=== PATIENT | female | born 1960 | race Caucasian/White ===

== ENCOUNTER 2016-11-24 10:59 | Emergency (ER) | payer OTHER ==
[~2016-11-24] VITALS: Ht 149.9 cm; Wt 53.2 kg
[~2016-11-24 10:59] MED LIST: BACLOFEN10 MG PO; FLUCONAZOLE100 MG PO; FLUOXETINE HCL20 MG PO; LAC PO; LEVAQUIN750 MG PO; LORAZEPAM1 MG PO; NAPROXEN500 MG PO; OMEPRAZOLE40 M1 PO; PROVENTIL0.09 MG/A1 INH; SINGULAIR10 MG PO; SULFASALAZINE500 MG PO; VENLAFAXINE HYD75 M1 PO
[2016-11-24 14:18] VITALS: BP 118/77
== END 2016-11-24 14:19 | disposition home or self-care (01) ==
LOC: ED 10:59
DX: G43.909 Migraine, unspecified, not intractable, without status migrainosus (principal); H53.149 Visual discomfort, unspecified; R11.2 Nausea with vomiting, unspecified; M06.9 Rheumatoid arthritis, unspecified; L40.50 Arthropathic psoriasis, unspecified; M19.90 Unspecified osteoarthritis, unspecified site; F17.200 Nicotine dependence, unspecified, uncomplicated; G89.4 Chronic pain syndrome; M54.2 Cervicalgia; M54.6 Pain in thoracic spine; M54.5 Low back pain; Z88.8 Allergy status to other drugs, medicaments and biological substances
CPT/HCPCS: J1885; Q0162

== ENCOUNTER 2017-09-15 14:33 | Emergency (ER) | payer OTHER ==
[~2017-09-15] VITALS: Ht 149.9 cm; Wt 51.0 kg
[2017-09-15 14:37] VITALS: Ht 149.9 cm; Wt 51.0 kg
[2017-09-15 15:05] VITALS: BP 119/88
== END 2017-09-15 15:05 | disposition home or self-care (01) ==
LOC: ED 14:33
DX: G89.29 Other chronic pain (principal); M13.88 Other specified arthritis, other site; F19.239 Other psychoactive substance dependence with withdrawal, unspecified; M06.9 Rheumatoid arthritis, unspecified; J45.909 Unspecified asthma, uncomplicated; Z88.1 Allergy status to other antibiotic agents; Z88.8 Allergy status to other drugs, medicaments and biological substances

== ENCOUNTER 2018-05-24 10:19 | Emergency (ER) | payer OTHER ==
[2018-05-24 10:33] VITALS: Ht 149.9 cm
[2018-05-24 12:19] VITALS: BP 129/75
== END 2018-05-24 12:19 | disposition home or self-care (01) ==
LOC: ED 10:19
DX: S30.860A Insect bite (nonvenomous) of lower back and pelvis, initial encounter (principal); S80.869A Insect bite (nonvenomous), unspecified lower leg, initial encounter; J45.909 Unspecified asthma, uncomplicated; Z88.8 Allergy status to other drugs, medicaments and biological substances; W57.XXXA Bitten or stung by nonvenomous insect and other nonvenomous arthropods, initial encounter; Y93.89 Activity, other specified; Y92.89 Other specified places as the place of occurrence of the external cause; Y99.8 Other external cause status

== ENCOUNTER 2018-05-28 01:59 | Inpatient (IN) | payer OTHER ==
[~2018-05-28] VITALS: Ht 149.9 cm; Wt 50.0 kg
[2018-05-28 07:01] LABS: CALCIUM 8.6 mg/dL (8.5-10.1); CARBON DIOXIDE 25.6 mmol/L (21-32); CHLORIDE SERUM 104 mmol/L (98-107); CREATININE SERUM 0.8 mg/dL (0.6-1.0); GFR1 > 60 mL/min; GLUCOSE SERUM 112 mg/dL (74-106); POTASSIUM SERUM 3.4 mmol/L (3.5-5.1); SODIUM SERUM 140 mmol/L (136-145)
[2018-05-28 07:21] LABS: ALBUMIN 3.9 g/dL (3.4-5.0); ALKALINE PHOSPHATASE 55 U/L (46-116); ALT/SGPT 64 U/L (14-59); AST/SGOT 81 U/L (15-37); BILIRUBIN TOTAL 0.4 mg/dL (0.20-1.00); TOTAL PROTEIN, SERUM 7.5 g/dL (6.4-8.2)
[2018-05-28 07:38] LABS: BASOPHIL % 0.6 % (0-2); PLATELET COUNT 330 x10^3mcL (130-400); RED CELL DISTRIBUTION WIDTH 13.5 % (11.5-14.5)
[2018-05-28 08:37] LABS: AMPHETAMINE QUAL UR NONE DETECTED (See below)
[2018-05-28] MEDS ORDERED: FLE10 PO (09:12)
[2018-05-28] MEDS ORDERED: EFFEXOR-XR75 MG PO (09:13)
[2018-05-28 10:57] VITALS: BP 146/57
[2018-05-28 11:33] LABS: FREE T4 0.96 ng/dL (0.76-1.46); FREE THYROXINE INDEX 2.3 ug/dL (1.4-4.5); MAGNESIUM 2.1 mg/dL (1.8-2.4); PHOSPHOROUS 4.1 mg/dL (2.5-4.9)
[2018-05-28 11:35] LABS: CHOLESTEROL/HDL RATIO 2.2
[2018-05-28 11:53] LABS: UA SPECIFIC GRAVITY 1.015 (1.005-1.035); microscopic required? YES; urine erythrocyte 1+ (NEGATIVE)
[2018-05-28 17:18] VITALS: BP 135/70
[2018-05-28 17:23] VITALS: BP 146/57
[2018-05-28 20:42] VITALS: BP 129/68
[2018-05-29 01:03] LABS: T3 TOTAL 0.68 ng/mL
[2018-05-29 05:56] VITALS: BP 149/86
[2018-05-29 07:19] LABS: BASOPHIL % 0.8 % (0-2); CALCIUM 7.9 mg/dL (8.5-10.1); CARBON DIOXIDE 23.2 mmol/L (21-32); CHLORIDE SERUM 111 mmol/L (98-107); CREATININE SERUM 0.8 mg/dL (0.6-1.0); GFR1 > 60 mL/min; GLUCOSE SERUM 76 mg/dL (74-106); PLATELET COUNT 307 x10^3mcL (130-400); POTASSIUM SERUM 3.8 mmol/L (3.5-5.1); RED CELL DISTRIBUTION WIDTH 13.7 % (11.5-14.5); SODIUM SERUM 145 mmol/L (136-145)
[2018-05-29 08:35] VITALS: BP 139/79
[2018-05-29 17:05] VITALS: BP 139/81
[2018-05-29 21:11] VITALS: BP 124/68
[2018-05-30 06:04] VITALS: BP 143/78
[2018-05-30 07:08] LABS: CALCIUM 8.8 mg/dL (8.5-10.1); CARBON DIOXIDE 30.6 mmol/L (21-32); CHLORIDE SERUM 103 mmol/L (98-107); CREATININE SERUM 0.8 mg/dL (0.6-1.0); GFR1 > 60 mL/min; GLUCOSE SERUM 95 mg/dL (74-106); LIPASE 195 IU/L (73-393); POTASSIUM SERUM 3.6 mmol/L (3.5-5.1); SODIUM SERUM 141 mmol/L (136-145)
[2018-05-30 07:39] LABS: BASOPHIL % 0.6 % (0-2); PLATELET COUNT 397 x10^3mcL (130-400); RED CELL DISTRIBUTION WIDTH 13.7 % (11.5-14.5)
[2018-05-30 08:54] VITALS: BP 143/80
[2018-05-30 17:28] VITALS: BP 147/76
[2018-05-30 20:50] VITALS: BP 132/80
[2018-05-31 05:51] VITALS: BP 143/79
[2018-05-31 06:52] LABS: BASOPHIL % 0.6 % (0-2); PLATELET COUNT 343 x10^3mcL (130-400); RED CELL DISTRIBUTION WIDTH 13.3 % (11.5-14.5)
[2018-05-31 07:13] LABS: CALCIUM 8.5 mg/dL (8.5-10.1); CARBON DIOXIDE 25.8 mmol/L (21-32); CHLORIDE SERUM 105 mmol/L (98-107); CREATININE SERUM 0.6 mg/dL (0.6-1.0); GFR1 > 60 mL/min; GLUCOSE SERUM 96 mg/dL (74-106); POTASSIUM SERUM 3.7 mmol/L (3.5-5.1); SODIUM SERUM 139 mmol/L (136-145)
[2018-05-31 09:13] VITALS: BP 132/66
[2018-05-31] MEDS ORDERED: HYDROXYZINE HYD25 MG PO (11:09)
[2018-05-31] MEDS ORDERED: PREDNISONE50 MG PO (11:10)
[2018-05-31] MEDS ORDERED: TRAMADOL HCL50 MG PO (11:12)
[2018-05-31 18:07] VITALS: BP 123/89
[2018-05-31 20:36] VITALS: BP 143/82
[2018-06-01 05:19] VITALS: BP 124/64
[2018-06-01 08:26] VITALS: BP 134/61
[2018-06-01 10:37] VITALS: BP 134/61
== END 2018-06-01 10:59 | disposition home or self-care (01) | DRG 917 ==
LOC: ED 01:59 → MU 08:39
PROVIDERS: Emergency Medicine; Internal Medicine
DX: T40.7X4A Poisoning by cannabis (derivatives), undetermined, initial encounter (principal); G92 Toxic encephalopathy; N17.0 Acute kidney failure with tubular necrosis; N39.0 Urinary tract infection, site not specified; M62.82 Rhabdomyolysis; J44.9 Chronic obstructive pulmonary disease, unspecified; J45.909 Unspecified asthma, uncomplicated; M54.9 Dorsalgia, unspecified; G89.29 Other chronic pain; F32.9 Major depressive disorder, single episode, unspecified; Z72.0 Tobacco use
CPT/HCPCS: 83880; 84439; 94150; 97116-GP; G0480; J0696; J7030; Q0092

== ENCOUNTER 2018-07-29 10:14 | Emergency (ER) | payer MEDICARE, OTHER ==
[~2018-07-29] VITALS: Ht 149.9 cm; Wt 49.4 kg
[~2018-07-29 10:14] MED LIST changes: +EFFEXOR-XR75 MG PO; +FLE10 PO; +HYDROXYZINE HYD25 MG PO; +PREDNISONE50 MG PO; +TRAMADOL HCL50 MG PO
[2018-07-29 10:24] VITALS: BP 124/89; Ht 149.9 cm; Wt 49.4 kg
== END 2018-07-29 12:24 | disposition home or self-care (01) ==
LOC: ED 10:14
DX: M79.10 Myalgia, unspecified site (principal); F17.210 Nicotine dependence, cigarettes, uncomplicated; J45.909 Unspecified asthma, uncomplicated; Z59.0 Homelessness; Z88.6 Allergy status to analgesic agent; Z88.5 Allergy status to narcotic agent; Z88.8 Allergy status to other drugs, medicaments and biological substances
CPT/HCPCS: J1885

== ENCOUNTER 2018-08-06 17:29 | Emergency (ER) | payer MEDICARE, OTHER ==
[~2018-08-06] VITALS: Ht 149.9 cm; Wt 48.1 kg
[~2018-08-06 17:29] MED LIST changes: -TRAMADOL HCL50 MG PO
[2018-08-06 17:38] VITALS: Ht 149.9 cm; Wt 48.1 kg
[2018-08-06 19:53] VITALS: BP 146/92
== END 2018-08-06 19:53 | disposition home or self-care (01) ==
LOC: ED 17:29
DX: M45.9 Ankylosing spondylitis of unspecified sites in spine (principal); G89.29 Other chronic pain; R19.7 Diarrhea, unspecified; J45.909 Unspecified asthma, uncomplicated; M19.90 Unspecified osteoarthritis, unspecified site; Z59.0 Homelessness; Z88.6 Allergy status to analgesic agent; Z88.8 Allergy status to other drugs, medicaments and biological substances
CPT/HCPCS: J1885

== ENCOUNTER 2018-08-08 21:52 | Inpatient (IN) | payer MEDICARE, OTHER ==
[~2018-08-08] VITALS: Ht 149.9 cm; Wt 49.1 kg
[2018-08-08 21:59] VITALS: Ht 149.9 cm; Wt 49.1 kg
[2018-08-08 22:57] LABS: BASOPHIL % 0.7 % (0-2); PLATELET COUNT 358 x10^3mcL (130-400); RED CELL DISTRIBUTION WIDTH 14.2 % (11.5-14.5)
[2018-08-08 23:15] LABS: CALCIUM 8.6 mg/dL (8.5-10.1); CARBON DIOXIDE 24.2 mmol/L (21-32); CREATININE SERUM 1.4 mg/dL (0.6-1.0); POTASSIUM SERUM 3.8 mmol/L (3.5-5.1)
[2018-08-08 23:17] LABS: ALBUMIN 3.4 g/dL (3.4-5.0); BILIRUBIN TOTAL 0.19 mg/dL (0.20-1.00)
[2018-08-08 23:21] LABS: TOTAL PROTEIN, SERUM 6.1 g/dL (6.4-8.2)
[2018-08-09 00:12] LABS: microscopic required? YES; urine erythrocyte TRACE (NEGATIVE)
[2018-08-09] MEDS ORDERED: IBUPROFEN200 M2 PO (01:15)
[2018-08-09 02:09] VITALS: BP 95/52
[2018-08-09 05:37] VITALS: BP 97/51
[2018-08-09 07:09] LABS: BASOPHIL % 0.4 % (0-2); PLATELET COUNT 338 x10^3mcL (130-400)
[2018-08-09 07:15] LABS: ALKALINE PHOSPHATASE 43 U/L (46-116); ALT/SGPT 26 U/L (14-59); AST/SGOT 26 U/L (15-37); BILIRUBIN TOTAL 0.2 mg/dL (0.20-1.00); CALCIUM 7.7 mg/dL (8.5-10.1); CARBON DIOXIDE 21.4 mmol/L (21-32); CHLORIDE SERUM 110 mmol/L (98-107); CREATININE SERUM 0.9 mg/dL (0.6-1.0); GFR1 > 60 mL/min; GLUCOSE SERUM 90 mg/dL (74-106); POTASSIUM SERUM 3.8 mmol/L (3.5-5.1); SODIUM SERUM 140 mmol/L (136-145)
[2018-08-09 07:29] LABS: ALBUMIN 2.4 g/dL (3.4-5.0); TOTAL PROTEIN, SERUM 5.3 g/dL (6.4-8.2)
[2018-08-09 08:56] VITALS: BP 100/51
[2018-08-09] MEDS ORDERED: TRAMADOL HCL50 MG PO (10:52)
[2018-08-09 10:53] VITALS: BP 100/51
== END 2018-08-09 11:33 | disposition home or self-care (01) | DRG 690 ==
LOC: ED 21:52 → DU 08-09 00:19
PROVIDERS: Emergency Medicine; Internal Medicine
DX: N39.0 Urinary tract infection, site not specified (principal); E86.0 Dehydration; M06.9 Rheumatoid arthritis, unspecified; M45.9 Ankylosing spondylitis of unspecified sites in spine; Z68.21 Body mass index [BMI] 21.0-21.9, adult; F17.210 Nicotine dependence, cigarettes, uncomplicated; Z79.1 Long term (current) use of non-steroidal anti-inflammatories (NSAID)
CPT/HCPCS: 90658; J0696; J1650; J7030; Q0092

== ENCOUNTER 2018-09-03 00:44 | Emergency (ER) | payer MEDICARE ==
[~2018-09-03] VITALS: Ht 149.9 cm; Wt 48.1 kg
[~2018-09-03 00:44] MED LIST changes: +IBUPROFEN200 M2 PO; +TRAMADOL HCL50 MG PO
[2018-09-03 00:53] VITALS: Ht 149.9 cm; Wt 48.1 kg
[2018-09-03 02:49] VITALS: BP 107/62
== END 2018-09-03 02:49 | disposition home or self-care (01) ==
LOC: ED 00:44
DX: N39.0 Urinary tract infection, site not specified (principal); N12 Tubulo-interstitial nephritis, not specified as acute or chronic; F32.9 Major depressive disorder, single episode, unspecified; F41.9 Anxiety disorder, unspecified; M45.9 Ankylosing spondylitis of unspecified sites in spine; M06.9 Rheumatoid arthritis, unspecified
CPT/HCPCS: J1885

== ENCOUNTER 2018-09-18 20:55 | Emergency (ER) | payer BC ==
[~2018-09-18] VITALS: Ht 149.9 cm; Wt 47.6 kg
[2018-09-18 21:10] VITALS: Ht 149.9 cm; Wt 47.6 kg
[2018-09-18 21:41] LABS: BASOPHIL % 0.7 % (0-2); PLATELET COUNT 350 x10^3mcL (130-400); RED CELL DISTRIBUTION WIDTH 13.9 % (11.5-14.5)
[2018-09-18 21:55] LABS: CALCIUM 8.9 mg/dL (8.5-10.1); CARBON DIOXIDE 26.2 mmol/L (21-32); CHLORIDE SERUM 103 mmol/L (98-107); CREATININE SERUM 0.9 mg/dL (0.6-1.0); GFR1 > 60 mL/min; GLUCOSE SERUM 86 mg/dL (74-106); POTASSIUM SERUM 3.7 mmol/L (3.5-5.1); SODIUM SERUM 140 mmol/L (136-145)
[2018-09-18 22:00] LABS: ALBUMIN 3.8 g/dL (3.4-5.0); ALKALINE PHOSPHATASE 57 U/L (46-116); ALT/SGPT 28 U/L (14-59); AST/SGOT 26 U/L (15-37); BILIRUBIN TOTAL 0.36 mg/dL (0.20-1.00); TOTAL PROTEIN, SERUM 7.4 g/dL (6.4-8.2)
[2018-09-19 00:07] LABS: AMPHETAMINE QUAL UR NONE DETECTED (See below)
[2018-09-19 14:00] VITALS: BP 120/68
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
== END 2018-09-19 14:00 | disposition home or self-care (01) ==
LOC: ED 20:55
PROVIDERS: Emergency Medicine
DX: R53.1 Weakness (principal); G89.29 Other chronic pain; M54.5 Low back pain; J45.909 Unspecified asthma, uncomplicated; M45.9 Ankylosing spondylitis of unspecified sites in spine; M06.9 Rheumatoid arthritis, unspecified; M19.90 Unspecified osteoarthritis, unspecified site; Z88.8 Allergy status to other drugs, medicaments and biological substances; Z88.6 Allergy status to analgesic agent; Z59.0 Homelessness
CPT/HCPCS: G0480; J1885; J7030

== ENCOUNTER 2018-09-30 10:54 | Emergency (ER) | payer BC ==
[~2018-09-30] VITALS: Ht 149.9 cm; Wt 46.7 kg
[2018-09-30 11:03] VITALS: BP 143/90; Ht 149.9 cm; Wt 46.7 kg
== END 2018-09-30 14:00 | disposition left against medical advice (07) ==
LOC: ED 10:54
DX: Z53.21 Procedure and treatment not carried out due to patient leaving prior to being seen by health care provider (principal)

== ENCOUNTER 2018-10-01 21:14 | Emergency (ER) | payer BC ==
[~2018-10-01] VITALS: Ht 149.9 cm; Wt 46.7 kg
[2018-10-01 21:19] VITALS: Ht 149.9 cm; Wt 46.7 kg
[2018-10-01 22:43] LABS: CALCIUM 8.8 mg/dL (8.5-10.1); CARBON DIOXIDE 25.7 mmol/L (21-32); CHLORIDE SERUM 107 mmol/L (98-107); CREATININE SERUM 0.8 mg/dL (0.6-1.0); GFR1 > 60 mL/min; GLUCOSE SERUM 100 mg/dL (74-106); POTASSIUM SERUM 3.4 mmol/L (3.5-5.1); SODIUM SERUM 141 mmol/L (136-145)
[2018-10-02 13:45] VITALS: BP 120/71
--- NOTE | 2018-10-02 14:39 | NUR ---
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 SS MET WITH PATIENT IN ER DEPT. SHE IS FAMILIAR TO [facility]. PATIENT HAS BEEN STAYING IN [place] ON [address] AT [facility] AND AT [facility] ON [address]. PATIENT STATES SHE LOST ALL THE RESOURCES SS PROVIDED HER WITH 2 WEEKS AGO. SHE CALLED [place] [phone] AND WAS PROVIDED A ROOM AND BOARD LOCATED ON [address] BY THE [address] AND SHE WANTS TO GO THERE. PROVIDED HER WITH AN ALL DAY BUS PASS AND 3 ADDITIONAL ROOM AND BOARDS FOR HER TO CALL: 1) [facility] #[phone]/ ACID STRENGTH INSPECTOR OF 4 ROOM AND BOARDS: [place], [facility] [facility], AND [place]; SHE HAS AVAILABILITY AND WILL DO A PHONE INTERVIEW. 2) [facility] #[phone]- ASK FOR MR ALEXANDER/ACID STRENGTH INSPECTOR; HE WILL HAVE AN OPENING LATER THIS AFTERNOON AND WILL DO A PHONE INTERVIEW. 3)[facility] IN [facility] #[phone]; HE HAS OPENINGS IN 2 HOMES AND WILL DO A PHONE INTERVIEW. SS PROVIDED PATIENT WITH THE ABOVE INFORMATION; SHE SIGNED THE HOMELESS WAIVER STATING SHE WILL MAKE HER OWN ARRANGEMENTS WITH THE RESOURCES PROVIDED. SHE RECEIVES $1000.00 MONTH. SHE ACCEPTED THE ALL DAY BUS PASS. SHE WAS PROVIDED 2 MEALS. PATIENT WAS MEDICALLY CLEARED BY ER PHYSICIAN.
== END 2018-10-02 13:45 | disposition home or self-care (01) ==
LOC: ED 21:14
PROVIDERS: Emergency Medicine
DX: R53.1 Weakness (principal); G89.29 Other chronic pain; M54.9 Dorsalgia, unspecified; J45.909 Unspecified asthma, uncomplicated; M45.9 Ankylosing spondylitis of unspecified sites in spine; Z88.6 Allergy status to analgesic agent; Z88.8 Allergy status to other drugs, medicaments and biological substances
CPT/HCPCS: J1885

== ENCOUNTER 2019-03-10 10:53 | Emergency (ER) | payer BC ==
[~2019-03-10] VITALS: Ht 149.9 cm; Wt 46.4 kg
[2019-03-10 10:56] VITALS: BP 121/65; Ht 149.9 cm; Wt 46.4 kg
== END 2019-03-10 12:06 | disposition home or self-care (01) ==
LOC: ED 10:53
DX: N39.0 Urinary tract infection, site not specified (principal); J45.909 Unspecified asthma, uncomplicated; Z88.5 Allergy status to narcotic agent; Z88.8 Allergy status to other drugs, medicaments and biological substances; Z88.1 Allergy status to other antibiotic agents
CPT/HCPCS: J0696; J1885

== ENCOUNTER 2019-04-10 17:11 | Emergency (ER) | payer BC ==
[~2019-04-10] VITALS: Ht 149.9 cm; Wt 46.3 kg
[2019-04-10 17:42] VITALS: Ht 149.9 cm; Wt 46.3 kg
[2019-04-10 19:32] VITALS: BP 139/80
== END 2019-04-10 19:32 | disposition home or self-care (01) ==
LOC: ED 17:11
DX: L01.00 Impetigo, unspecified (principal); B85.0 Pediculosis due to Pediculus humanus capitis; F17.210 Nicotine dependence, cigarettes, uncomplicated; J45.909 Unspecified asthma, uncomplicated; G89.29 Other chronic pain; Z88.8 Allergy status to other drugs, medicaments and biological substances

== ENCOUNTER 2019-06-11 12:40 | Emergency (ER) | payer BC ==
[~2019-06-11] VITALS: Ht 149.9 cm; Wt 44.9 kg
[2019-06-11 12:50] VITALS: Ht 149.9 cm; Wt 44.9 kg
[2019-06-11 15:25] VITALS: BP 120/71
== END 2019-06-11 15:25 | disposition home or self-care (01) ==
LOC: ED 12:40
DX: G43.909 Migraine, unspecified, not intractable, without status migrainosus (principal); F17.210 Nicotine dependence, cigarettes, uncomplicated; J45.909 Unspecified asthma, uncomplicated; Z71.6 Tobacco abuse counseling; Z88.5 Allergy status to narcotic agent; Z88.8 Allergy status to other drugs, medicaments and biological substances
CPT/HCPCS: 99406; J1100; J1885

== ENCOUNTER 2019-06-17 17:58 | Inpatient (IN) | payer BC ==
[~2019-06-17] VITALS: Ht 149.9 cm; Wt 44.9 kg
[2019-06-17 18:01] VITALS: Ht 149.9 cm; Wt 44.9 kg
--- NOTE | 2019-06-17 18:09 | NUR ---
EKG IN PROG
[2019-06-17] MEDS ORDERED: CHILDREN'S100 MG/52 PO (18:12)
[2019-06-17] MEDS ORDERED: FLUOXETINE HYDR20 M2 PO (18:13)
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
--- NOTE | 2019-06-17 18:17 | NUR ---
DR CASH AT BEDSIDE FOR MSE
--- NOTE | 2019-06-17 18:27 | NUR ---
PT TOOK BRA OFF WITHOUT ASSISTANCE. IVF INFUSING ORDERED. DR CASH AWARE OF BP INCREASE
[2019-06-17 18:46] LABS: BASOPHIL % 0.7 % (0-2); PLATELET COUNT 259 x10^3mcL (130-400); RED CELL DISTRIBUTION WIDTH 13.3 % (11.5-14.5)
[2019-06-17 18:53] LABS: CALCIUM 7.7 mg/dL (8.5-10.1); CARBON DIOXIDE 31.3 mmol/L (21-32); CHLORIDE SERUM 105 mmol/L (98-107); CREATININE SERUM 0.9 mg/dL (0.6-1.0); GFR1 > 60 mL/min; GLUCOSE SERUM 99 mg/dL (74-106); SODIUM SERUM 139 mmol/L (136-145)
[2019-06-17 18:57] LABS: ALKALINE PHOSPHATASE 40 U/L (46-116); ALT/SGPT 23 U/L (14-59); AST/SGOT 17 U/L (15-37); BILIRUBIN TOTAL 0.2 mg/dL (0.20-1.00)
[2019-06-17 19:00] LABS: TOTAL PROTEIN, SERUM 5.8 g/dL (6.4-8.2)
--- NOTE | 2019-06-17 19:08 | NUR ---
REPORT GIVEN TO JESSICA RIVERS
--- NOTE | 2019-06-17 19:10 | NUR ---
PT REPORT RECEIVED FROM KENDAL RN TO ASSUME PT CARE. PT RESTING IN A POSITION OF COMFORT, AOX4, RESP EVEN AND UNLABORED, NO ACUTE DISTRESS NOTED. DR CASH AWARE OF BP. WAITING FOR ORDERS.
--- NOTE | 2019-06-17 19:28 | NUR ---
ADMINISTERED NARCAN PER EMAR, PT RESTING COMFORTABLY AT THIS TIME. NO S/S OF DISTRESS NOTED.
--- NOTE | 2019-06-17 20:26 | NUR ---
PT RESTING IN A POSITION OF COMFORT WITH EYES CLOSED, RESP EVEN AND UNLAORED, CHEST RISE AND FALL NOTED. PT REMAINS ON CM.
--- NOTE | 2019-06-17 20:57 | NUR ---
PER [facility] BED ASSIGNMENT STILL NOT READY FOR PT ADMISSION.
--- NOTE | 2019-06-17 21:13 | NUR ---
PT REPORT CALLED TO DWAYNE RIVERS TO ASSUME PT CARE.
--- NOTE | 2019-06-17 21:15 | NUR ---
PT TRANSFERRED TO [facility] BY [facility] BY ROLAND RIVERS AND LILI EMT. PT ON FULL CM FOR TRANSPORT PT AOX4, RESP EVEN AND UNLABORED, NO ACUTE DISTRESS NOTED. PT ACCEPTED BY ROCK RIVERS TO ASSUME PT CARE. PT TRANSFERRED FROM [facility] TO BED WITHOUT INCIDENT.
--- NOTE | 2019-06-17 21:20 | NUR ---
RECEIVED PT VIA GURNEY FROM E/D, ACCOMPANIED BY RN AND TRANSPORTER. PT A/A/O X 4, CALM, COOPERATIVE; NOTED SLOW SPEECH. PT W/ GENERALIZED WEAKNESS BUT ABLE TO AMBULATE W/ SLOW, STEADY GAIT; C/O CONSTANT ACHING PAIN TO R SIDE BODY 2/2 ANKYLOSING SPONDYLITIS, 03/11, EXACERBATED BY MOVEMENT AND WALKING, RELIEVED BY PAIN MEDICATIONS AND REST; FALL RISK PROTOCOL IN PLACE. ON TELE # 9, HR 76, DENIES CHEST PAIN OR DISCOMFORT AT THIS TIME. SCD BY BEDSIDE. NO ACUTE RESPIRATORY DISTRESS NOTED. IV SITE RW 20G, CDI. ORIENTED PT TO ROOM, BED CONTROLS, CALL LIGHT SYSTEM. SIDE RAILS UP X 2, BED IN LOW POSITION. WILL ENDORSE TO SILVESTRE RICE.
[2019-06-17 21:47] VITALS: BP 114/62
--- NOTE | 2019-06-17 23:05 | NUR ---
PATIENT RESTING THIS TIME WITH NO SIGN OF RESPIRATORY DISTRESS, BREATHING EASYA ND NONLABOR. FLU SHOT GIVEN INTRAMASCULAR TO RT ARM. WITH ADMISSION ORDERS FROM DR ANTONY AND CARRIED OUT. STARTED WITH NS INFUSING AT 80ML/HR TO RT WRIST. WILL CONTINUE TO MONITOR. CALL LIGHT WITHIN REACH.
[2019-06-18 04:27] VITALS: BP 108/53
--- NOTE | 2019-06-18 05:05 | NUR ---
SLEPT FAIRLY DENIES PAINA ND DSICOMFORT THE ENTIRE SHIFT. CHECKED AT INTERVALS FOR NEEDS AND SAFETY.
--- NOTE | 2019-06-18 07:10 | NUR ---
RECEIVEDREPORT FROM FINANCE TEACHER NURSE. PT LYING IN BED ASLEEP BUT AROUSABLE. A&O X4. DENIES CHEST PAIN OR SOB.IV PATENT AND INTACT NO REDNESS OR EDEMA NOTED. ASSESSED AND DOCUMENTED. ALL SAFETY PRECAUTIONS IN PLACE. ALL NEED ADDRESSED AT THIS TIME. CALL LIGHT WITHIN REACH. WILL CONTINUE TO MONITOR.
[2019-06-18 08:41] VITALS: BP 106/47
--- NOTE | 2019-06-18 09:05 | NUR ---
PT LYING IN BED AWAKE IN NO APARENT DISTRESS ASKING FOR FOOD. DR. ANTONY PAGED FOR DIET ORDER. WILL PROCEED WITH ORDERS WHEN PUT IN. PT DENIES PAIN. ALL NEEDS ADDRESSED AT THIS TIME.
--- NOTE | 2019-06-18 10:35 | NUR ---
PT ASKED TO LEAVE AMA. DR MALDONADO AWAITING CALL BACK TO NOTIFY. AMA FORM PRINTED AND SIGNED BY PT. IV AND TELE MONITOR REMOVED ID BANDS CUT PT LEFT THE FLOOR AT 1039.
== END 2019-06-18 10:39 | disposition left against medical advice (07) | DRG 312 ==
LOC: ED 17:58 → DU 19:59
PROVIDERS: Emergency Medicine; ADMIT Internal Medicine Pulmonary Disease
DX: I95.2 Hypotension due to drugs (principal); N17.9 Acute kidney failure, unspecified; M45.9 Ankylosing spondylitis of unspecified sites in spine; G43.709 Chronic migraine without aura, not intractable, without status migrainosus; M06.9 Rheumatoid arthritis, unspecified; E03.9 Hypothyroidism, unspecified; G89.29 Other chronic pain; T40.2X5A Adverse effect of other opioids, initial encounter; Y92.018 Other place in single-family (private) house as the place of occurrence of the external cause
CPT/HCPCS: 90658; G0378; J2310; J7030

== ENCOUNTER 2019-12-01 10:46 | Emergency (ER) | payer BC ==
[~2019-12-01] VITALS: Ht 149.9 cm; Wt 46.3 kg
[~2019-12-01 10:46] MED LIST changes: +CHILDREN'S100 MG/52 PO; +FLUOXETINE HYDR20 M2 PO
[2019-12-01 11:15] VITALS: BP 109/74
== END 2019-12-01 11:15 | disposition home or self-care (01) ==
LOC: ED 10:46
DX: S00.261A Insect bite (nonvenomous) of right eyelid and periocular area, initial encounter (principal); L03.113 Cellulitis of right upper limb; G89.29 Other chronic pain; M54.9 Dorsalgia, unspecified; F17.200 Nicotine dependence, unspecified, uncomplicated; J45.909 Unspecified asthma, uncomplicated; G43.909 Migraine, unspecified, not intractable, without status migrainosus; Z88.8 Allergy status to other drugs, medicaments and biological substances; Z98.890 Other specified postprocedural states; W57.XXXA Bitten or stung by nonvenomous insect and other nonvenomous arthropods, initial encounter; Y93.89 Activity, other specified; Y92.89 Other specified places as the place of occurrence of the external cause; Y99.8 Other external cause status
CPT/HCPCS: 99406; J1885

== ENCOUNTER 2019-12-05 16:48 | Emergency (ER) | payer BC ==
[~2019-12-05] VITALS: Ht 149.9 cm; Wt 46.3 kg
[2019-12-05 17:29] LABS: BASOPHIL % 0.6 % (0-2); PLATELET COUNT 298 x10^3mcL (130-400)
[2019-12-05 17:40] LABS: CALCIUM 8.8 mg/dL (8.5-10.1); CARBON DIOXIDE 27.3 mmol/L (21-32); CHLORIDE SERUM 103 mmol/L (98-107); CREATININE SERUM 0.8 mg/dL (0.6-1.0); GFR1 > 60 mL/min; GLUCOSE SERUM 84 mg/dL (74-106); POTASSIUM SERUM 3.3 mmol/L (3.5-5.1); SODIUM SERUM 139 mmol/L (136-145)
[2019-12-05 17:45] LABS: ALBUMIN 4.1 g/dL (3.4-5.0); ALKALINE PHOSPHATASE 47 U/L (46-116); ALT/SGPT 27 U/L (14-59); AST/SGOT 26 U/L (15-37); BILIRUBIN TOTAL 0.38 mg/dL (0.20-1.00); LIPASE 80 IU/L (73-393); TOTAL PROTEIN, SERUM 7.3 g/dL (6.4-8.2)
[2019-12-05 22:45] VITALS: BP 119/50
== END 2019-12-05 22:45 | disposition home or self-care (01) ==
LOC: ED 16:48
PROVIDERS: Emergency Medicine
DX: R55 Syncope and collapse (principal); R07.89 Other chest pain; M54.5 Low back pain; G89.29 Other chronic pain; J45.909 Unspecified asthma, uncomplicated; G43.909 Migraine, unspecified, not intractable, without status migrainosus; Z98.84 Bariatric surgery status; Z88.5 Allergy status to narcotic agent; Z88.6 Allergy status to analgesic agent; Z88.8 Allergy status to other drugs, medicaments and biological substances; W18.30XA Fall on same level, unspecified, initial encounter; Y93.89 Activity, other specified; Y92.89 Other specified places as the place of occurrence of the external cause; Y99.8 Other external cause status
CPT/HCPCS: J7030; Q0092

== ENCOUNTER 2020-02-22 17:43 | Emergency (ER) | payer BC ==
[~2020-02-22] VITALS: Ht 152.4 cm; Wt 42.6 kg
[2020-02-22 17:53] VITALS: Ht 152.4 cm; Wt 42.6 kg
[2020-02-22 18:40] LABS: BASOPHIL % 0.1 % (0-2); RED CELL DISTRIBUTION WIDTH 14.2 % (11.5-14.5)
[2020-02-22 18:42] LABS: PLATELET COUNT 448 x10^3mcL (130-400)
[2020-02-22 18:57] LABS: CALCIUM 9.5 mg/dL (8.5-10.1); CARBON DIOXIDE 24.8 mmol/L (21-32); CHLORIDE SERUM 97 mmol/L (98-107); GFR1 > 60 mL/min; GLUCOSE SERUM 138 mg/dL (74-106); POTASSIUM SERUM 4.7 mmol/L (3.5-5.1); SODIUM SERUM 135 mmol/L (136-145)
[2020-02-22 19:00] LABS: ALBUMIN 4.6 g/dL (3.4-5.0); ALKALINE PHOSPHATASE 60 U/L (46-116); ALT/SGPT 34 U/L (14-59); AST/SGOT 32 U/L (15-37); BILIRUBIN TOTAL 0.6 mg/dL (0.20-1.00); LIPASE 207 IU/L (73-393)
[2020-02-22 19:02] LABS: TOTAL PROTEIN, SERUM 8.6 g/dL (6.4-8.2)
[2020-02-22 22:06] VITALS: BP 148/76
== END 2020-02-22 22:06 | disposition home or self-care (01) ==
LOC: ED 17:43
PROVIDERS: Emergency Medicine
DX: A05.9 Bacterial foodborne intoxication, unspecified (principal); M19.90 Unspecified osteoarthritis, unspecified site; J45.909 Unspecified asthma, uncomplicated; G89.29 Other chronic pain; M54.9 Dorsalgia, unspecified; G43.909 Migraine, unspecified, not intractable, without status migrainosus; Z98.890 Other specified postprocedural states; Z88.8 Allergy status to other drugs, medicaments and biological substances; Z88.6 Allergy status to analgesic agent
CPT/HCPCS: J2270; J2405; J7030

== ENCOUNTER 2020-06-04 12:04 | Emergency (ER) | payer BC, MEDICAID ==
[~2020-06-04] VITALS: Ht 149.9 cm; Wt 43.5 kg
[2020-06-04 12:34] VITALS: Ht 149.9 cm; Wt 43.5 kg
[2020-06-04 17:51] VITALS: BP 127/70
== END 2020-06-04 17:37 | disposition left against medical advice (07) ==
LOC: ED 12:04
DX: M25.551 Pain in right hip (principal)